=== PATIENT | male | born 1975 | race Two or more races ===

== ENCOUNTER 2020-10-27 15:31 | Emergency (ER) | payer MEDICAID, OTHER ==
[~2020-10-27] VITALS: Ht 175.3 cm; Wt 99.8 kg
[2020-10-27 15:41] VITALS: BP 141/87
[2020-10-27 16:05] LABS: Basophils # (auto) 0.1 10 ^3/uL (0-0.2); Eosinophils # (auto) 0 10 ^3/uL (0-0.8); Eosinophils % (auto) 0.3 % (0.0-7.0); Hematocrit 45.9 % (41.0-53.0); Hemoglobin 16.6 g/dL (13.5-17.5); Lymphocytes # (auto) 1.5 10 ^3/uL (0.4-5.4); Lymphocytes % (auto) 21.8 % (10.0-50.0); Mean Corpuscular Hemoglobin 33.6 pg (28.0-32.0); Mean Corpuscular Hgb Conc. 36.3 g/dL (32.0-36.0); Mean Corpuscular Volume 92.6 fL (80.0-100.0); Monocytes # (auto) 0.6 10 ^3/uL (0-1.3); Neutrophils # (auto) 4.9 10 ^3/uL (1.6-8.6); Neutrophils % (auto) 68.9 % (37.0-80.0); Nucleated Red Blood Cells % 0.2 %; Platelet Count (auto) 277 10^3/uL (140-450); Red Blood Cells 4.95 10^6/uL (4.5-5.90); Red Cell Distribution Width 12.6 % (11.8-14.3); White Blood Cell 7.1 10^3/uL (4.4-10.8)
[2020-10-27 16:23] LABS: Alanine Aminotransferase 128 U/L (16-61); Albumin 4.1 g/dL (3.4-5.0); Anion Gap 7 (5-15); Aspartate Aminotransferase 81 U/L (15-37); BUN/Creatinine Ratio 13.3; Blood Urea Nitrogen 13 mg/dL (7-18); Calcium 9.6 mg/dL (8.5-10.1); Carbon Dioxide 27 mmol/L (21-32); Chloride 103 mmol/L (98-107); GFR African American 107 mL/min; GFR Non-African American 89 mL/min; Glucose 79 mg/dL (74-106); Potassium 4.2 mmol/L (3.5-5.1); Sodium 137 mmol/L (136-145)
[2020-10-27 16:28] LABS: Alkaline Phosphatase 71 U/L (45-117); Total Protein 8.9 g/dL (6.4-8.2)
== END 2020-10-27 20:23 | disposition left against medical advice (07) ==
LOC: ER 15:31
DX: R07.9 Chest pain, unspecified (principal); Z53.21 Procedure and treatment not carried out due to patient leaving prior to being seen by health care provider
CPT/HCPCS: 36415; 71046; 80053; 84484; 85025; 93005